=== PATIENT | female | born 1970 | race Caucasian/White ===

== ENCOUNTER 2023-07-04 06:58 | Day surgery (SDC) | payer BC, OTHER ==
[2023-07-04] VITALS (8 sets, daily range): BP systolic 120–132; BP diastolic 35–74; PULSE 72–78; RESP 12–14; TEMP 97.9; O2SAT 95–100
[~2023-07-04] VITALS: Ht 165.1 cm; Wt 71.2 kg
[2023-07-04] MEDS ORDERED: SPIR25TA5 PO (07:19)
[2023-07-04] MEDS ORDERED: PANT40TA54 PO (07:19)
[2023-07-04] MEDS ORDERED: ONDA-104 SL (07:19)
[2023-07-04] MEDS ORDERED: NALT50TA PO (07:19)
[2023-07-04] MEDS ORDERED: SERT-433 PO (07:19)
[2023-07-04] MEDS ORDERED: normal saline 1000ml 1,000 ML IV PRN (07:20)
[2023-07-04] MEDS ORDERED: albumin 25% 100mL bottle x 1 IV PRN (07:20)
== END 2023-07-04 10:45 | disposition home or self-care (01) ==
LOC: SSTAY O 06:58
PROVIDERS: ATTEND Radiology Diagnostic Radiology
DX: K70.31 Alcoholic cirrhosis of liver with ascites (principal); K76.6 Portal hypertension; D69.6 Thrombocytopenia, unspecified; D68.9 Coagulation defect, unspecified; Z88.8 Allergy status to other drugs, medicaments and biological substances; Z79.899 Other long term (current) drug therapy; F10.91 Alcohol use, unspecified, in remission
CPT/HCPCS: 49083; C1729; J3490; P9047; A6258; A6449

== ENCOUNTER 2023-07-28 08:34 | Day surgery (SDC) | payer OTHER ==
[2023-07-28] VITALS (8 sets, daily range): BP systolic 115–140; BP diastolic 57–72; PULSE 89–95; RESP 16; TEMP 98.7; O2SAT 93–100
[~2023-07-28] VITALS: Ht 165.1 cm; Wt 64.1 kg
[~2023-07-28 08:34] MED LIST: CHOL100046 PO; MULT-269 PO; NALT50TA PO; ONDA-104 SL; PANT40TA54 PO; PYRI-3 PO; SERT-433 PO; SPIR25TA5 PO
[2023-07-28] MEDS ORDERED: albumin 25% 100mL bottle x 1 IV PRN (09:05)
[2023-07-28] MEDS ORDERED: normal saline 1000ml 1,000 ML IV PRN (09:05)
== END 2023-07-28 11:20 | disposition home or self-care (01) ==
LOC: SSTAY O 08:34
PROVIDERS: ATTEND Radiology Vascular & Interventional Radiology
DX: R18.8 Other ascites (principal); R14.0 Abdominal distension (gaseous); Z79.899 Other long term (current) drug therapy; Z88.6 Allergy status to analgesic agent
CPT/HCPCS: 49083; C1729; J3490; P9047; A6258

== ENCOUNTER 2023-08-11 06:47 | Day surgery (SDC) | payer OTHER ==
[2023-08-11] VITALS (10 sets, daily range): BP systolic 106–145; BP diastolic 68–83; PULSE 90–99; RESP 14–16; TEMP 97.9; O2SAT 96–99
[~2023-08-11] VITALS: Ht 165.1 cm; Wt 67.8 kg
[2023-08-11] MEDS ORDERED: albumin 25% 100mL bottle x 1 IV PRN (07:40)
== END 2023-08-11 10:30 | disposition home or self-care (01) ==
LOC: SSTAY O 06:47
PROVIDERS: ATTEND Radiology Vascular & Interventional Radiology
DX: K70.31 Alcoholic cirrhosis of liver with ascites (principal); K76.6 Portal hypertension; Z79.899 Other long term (current) drug therapy; Z98.890 Other specified postprocedural states
CPT/HCPCS: 49083; C1729; P9047; 96360; A6258; A6449

== ENCOUNTER 2023-08-18 06:30 | Day surgery (SDC) | payer OTHER ==
[2023-08-18] VITALS (11 sets, daily range): BP systolic 110–144; BP diastolic 59–86; PULSE 91–99; RESP 12–16; TEMP 99.4; O2SAT 96–98
[~2023-08-18] VITALS: Ht 165.1 cm; Wt 63.5 kg
[2023-08-18] MEDS ORDERED: AMOXICILLIN (07:15)
[2023-08-18] MEDS: albumin 25% 100mL bottle x 1 IV PRN ×2 (08:31→09:16)
== END 2023-08-18 11:10 | disposition home or self-care (01) ==
LOC: SSTAY O 06:30
PROVIDERS: ATTEND Radiology Vascular & Interventional Radiology
DX: K70.31 Alcoholic cirrhosis of liver with ascites (principal); K76.6 Portal hypertension; D69.6 Thrombocytopenia, unspecified; D68.9 Coagulation defect, unspecified; Z98.890 Other specified postprocedural states; Z88.8 Allergy status to other drugs, medicaments and biological substances; Z79.899 Other long term (current) drug therapy
CPT/HCPCS: 49083; C1729; P9047; 96360; A6258

== ENCOUNTER 2023-08-25 06:38 | Day surgery (SDC) | payer OTHER ==
[2023-08-25] VITALS (8 sets, daily range): BP systolic 111–134; BP diastolic 45–76; PULSE 92–97; RESP 16; TEMP 98.3; O2SAT 94–96
[~2023-08-25] VITALS: Ht 165.1 cm; Wt 62.1 kg
[~2023-08-25 06:38] MED LIST changes: +AMOXICILLIN
[2023-08-25] MEDS ORDERED: albumin 25% 100mL bottle x 1 IV PRN (07:05)
[2023-08-25] MEDS ORDERED: SPIR50TA5 PO (07:34)
[2023-08-25] MEDS ORDERED: LIDO15SO3 PO (07:34)
[2023-08-25] MEDS ORDERED: AMOX600S4 PO (07:34)
== END 2023-08-25 09:46 | disposition home or self-care (01) ==
LOC: SSTAY O 06:38
PROVIDERS: ATTEND Radiology Vascular & Interventional Radiology
DX: K70.31 Alcoholic cirrhosis of liver with ascites (principal); K76.6 Portal hypertension; D69.6 Thrombocytopenia, unspecified; D68.9 Coagulation defect, unspecified; Z98.890 Other specified postprocedural states
CPT/HCPCS: 49083; C1729; P9047; 96360; A6258

== ENCOUNTER 2023-08-31 07:29 | Day surgery (SDC) | payer OTHER ==
[~2023-08-31] VITALS: Ht 165.1 cm; Wt 60.8 kg
[~2023-08-31 07:29] MED LIST changes: +AMOX600S4 PO; -AMOXICILLIN; +LIDO15SO3 PO; -NALT50TA PO; -SPIR25TA5 PO; +SPIR50TA5 PO
[2023-08-31] MEDS: albumin 25% 100mL bottle x 1 IV PRN ×2 (08:04→08:05)
[2023-08-31 08:29] VITALS: RESP 15; O2SAT 97
[2023-08-31 08:34] VITALS: BP 115/77; PULSE 94; RESP 15; O2SAT 93
[2023-08-31 08:50] VITALS: BP 134/68; PULSE 94; RESP 14; O2SAT 94
[2023-08-31 09:03] VITALS: BP 133/76; PULSE 94; RESP 15; O2SAT 95
[2023-08-31 09:48] VITALS: BP 115/61; PULSE 95; RESP 15; O2SAT 94
== END 2023-08-31 10:30 | disposition home or self-care (01) ==
LOC: SSTAY O 07:29
PROVIDERS: ATTEND Radiology Diagnostic Radiology
DX: K70.31 Alcoholic cirrhosis of liver with ascites (principal); K76.6 Portal hypertension; D69.6 Thrombocytopenia, unspecified; D68.9 Coagulation defect, unspecified; Z79.899 Other long term (current) drug therapy; Z98.890 Other specified postprocedural states
CPT/HCPCS: 49083; C1729; P9047; A6258

== ENCOUNTER 2023-09-06 07:30 | Day surgery (SDC) | payer OTHER ==
[2023-09-06] VITALS (10 sets, daily range): BP systolic 89–131; BP diastolic 44–73; PULSE 87–96; RESP 14–18; TEMP 98.3; O2SAT 91–99
[~2023-09-06] VITALS: Ht 165.1 cm; Wt 59.0 kg
[~2023-09-06 07:30] MED LIST changes: -AMOX600S4 PO; -LIDO15SO3 PO
[2023-09-06] MEDS ORDERED: albumin 25% 100mL bottle x 1 IV PRN (08:05)
[2023-09-06] MEDS ORDERED: HALLS - SOOTHE MENTHOL 1.8 MG cough drop LOZENGE MM PRN (09:35)
== END 2023-09-06 11:40 | disposition home or self-care (01) ==
LOC: SSTAY O 07:30
PROVIDERS: ATTEND Radiology Vascular & Interventional Radiology
DX: K70.31 Alcoholic cirrhosis of liver with ascites (principal); K76.6 Portal hypertension; D69.6 Thrombocytopenia, unspecified; D68.9 Coagulation defect, unspecified; Z79.899 Other long term (current) drug therapy; Z98.890 Other specified postprocedural states
CPT/HCPCS: 49083; C1729; P9047; A6258; A6449

== ENCOUNTER 2023-09-14 07:50 | Day surgery (SDC) | payer OTHER ==
[2023-09-14] VITALS (7 sets, daily range): BP systolic 110–130; BP diastolic 58–77; PULSE 80–94; RESP 15–17; TEMP 97.8; O2SAT 94–100
[~2023-09-14] VITALS: Ht 165.1 cm; Wt 61.8 kg
[~2023-09-14 07:50] MED LIST changes: -ONDA-104 SL
[2023-09-14] MEDS ORDERED: albumin 25% 100mL bottle x 1 IV PRN (08:15)
== END 2023-09-14 10:20 | disposition home or self-care (01) ==
LOC: SSTAY O 07:50
PROVIDERS: ATTEND Radiology Vascular & Interventional Radiology
DX: K70.31 Alcoholic cirrhosis of liver with ascites (principal); K76.6 Portal hypertension; K31.819 Angiodysplasia of stomach and duodenum without bleeding; D69.6 Thrombocytopenia, unspecified; D68.9 Coagulation defect, unspecified; Z98.890 Other specified postprocedural states; Z79.899 Other long term (current) drug therapy
CPT/HCPCS: 49083; C1729; P9047; A6258; A6449

== ENCOUNTER 2023-09-21 06:59 | Day surgery (SDC) | payer OTHER ==
[2023-09-21] VITALS (11 sets, daily range): BP systolic 98–165; BP diastolic 56–96; PULSE 89–105; RESP 14–16; TEMP 98.4; O2SAT 95–97
[~2023-09-21] VITALS: Ht 165.1 cm; Wt 66.5 kg
[2023-09-21] MEDS: albumin 25% 100mL bottle x 1 IV PRN ×3 (09:05→09:08)
== END 2023-09-21 11:45 | disposition home or self-care (01) ==
LOC: SSTAY O 06:59
PROVIDERS: ATTEND Radiology Vascular & Interventional Radiology
DX: K70.31 Alcoholic cirrhosis of liver with ascites (principal); K76.6 Portal hypertension; D69.6 Thrombocytopenia, unspecified; D68.9 Coagulation defect, unspecified; K31.819 Angiodysplasia of stomach and duodenum without bleeding; Z98.890 Other specified postprocedural states; Z79.899 Other long term (current) drug therapy
CPT/HCPCS: 49083; C1729; P9047; A6258; A6449

== ENCOUNTER 2023-09-28 07:06 | Day surgery (SDC) | payer OTHER ==
[~2023-09-28] VITALS: Ht 165.1 cm; Wt 63.5 kg
[2023-09-28] VITALS (13 sets, daily range): BP systolic 115–153; BP diastolic 57–97; PULSE 98–106; RESP 16; TEMP 98.3; O2SAT 95–98
[2023-09-28] MEDS ORDERED: normal saline 1000ml 1,000 ML IV PRN (07:35)
[2023-09-28] MEDS ORDERED: FOLI1TAB27 PO (07:56)
[2023-09-28] MEDS ORDERED: THIA100T66 PO (07:56)
[2023-09-28] MEDS ORDERED: SERT-433 PO (07:56)
[2023-09-28] MEDS ORDERED: TRAZ-256 PO (07:56)
[2023-09-28] MEDS: albumin 25% 100mL bottle x 1 IV PRN ×2 (09:44→10:11)
== END 2023-09-28 11:30 | disposition home or self-care (01) ==
LOC: SSTAY O 07:06
PROVIDERS: ATTEND Radiology Vascular & Interventional Radiology
DX: K70.31 Alcoholic cirrhosis of liver with ascites (principal); D69.6 Thrombocytopenia, unspecified; D68.9 Coagulation defect, unspecified; K76.6 Portal hypertension; Z98.890 Other specified postprocedural states; Z79.899 Other long term (current) drug therapy
CPT/HCPCS: 49083; C1729; P9047; A6258; A6449

== ENCOUNTER 2023-10-02 06:22 | Day surgery (SDC) | payer OTHER ==
[2023-10-02] VITALS (8 sets, daily range): BP systolic 112–147; BP diastolic 58–83; PULSE 73–109; RESP 12–16; TEMP 99.2; O2SAT 94–99
[~2023-10-02 06:22] MED LIST changes: +FOLI1TAB27 PO; -PANT40TA54 PO; +THIA100T66 PO; +TRAZ-256 PO
[2023-10-02] MEDS ORDERED: albumin 25% 100mL bottle x 1 IV PRN (09:05)
== END 2023-10-02 10:00 | disposition home or self-care (01) ==
LOC: SSTAY O 06:22
PROVIDERS: ATTEND Radiology Vascular & Interventional Radiology
DX: R18.8 Other ascites (principal); R14.0 Abdominal distension (gaseous); K76.6 Portal hypertension
CPT/HCPCS: 49083; C1729; J3490; P9047; 96360

== ENCOUNTER 2023-10-05 06:05 | Day surgery (SDC) | payer OTHER ==
[2023-10-05] VITALS (7 sets, daily range): BP systolic 119–134; BP diastolic 68–77; PULSE 88–95; RESP 16; TEMP 98.3; O2SAT 97–99
[~2023-10-05] VITALS: Ht 165.1 cm; Wt 62.3 kg
[~2023-10-05 06:05] MED LIST changes: +albumin 25% 100mL bottle x 1 IV PRN
[2023-10-05] MEDS ORDERED: albumin 25% 100mL bottle x 1 IV PRN (06:25)
== END 2023-10-05 10:07 | disposition home or self-care (01) ==
LOC: SSTAY O 06:05
PROVIDERS: ATTEND Radiology Vascular & Interventional Radiology
DX: K70.31 Alcoholic cirrhosis of liver with ascites (principal); K76.6 Portal hypertension; D69.6 Thrombocytopenia, unspecified; D68.9 Coagulation defect, unspecified; Z98.890 Other specified postprocedural states; Z79.899 Other long term (current) drug therapy
CPT/HCPCS: 49083; C1729; P9047; 96360; A6258; A6449

== ENCOUNTER 2023-10-10 05:56 | Day surgery (SDC) | payer OTHER ==
[~2023-10-10] VITALS: Ht 165.1 cm; Wt 64.2 kg
[2023-10-10] VITALS (7 sets, daily range): BP systolic 104–135; BP diastolic 60–85; PULSE 94–99; RESP 16; TEMP 97.9; O2SAT 95–98
[~2023-10-10 05:56] MED LIST changes: -albumin 25% 100mL bottle x 1 IV PRN
[2023-10-10] MEDS ORDERED: albumin 25% 100mL bottle x 1 IV PRN (06:15)
== END 2023-10-10 10:00 | disposition home or self-care (01) ==
LOC: SSTAY O 05:56
PROVIDERS: ATTEND Radiology Diagnostic Radiology
DX: K70.31 Alcoholic cirrhosis of liver with ascites (principal); K76.6 Portal hypertension; D69.6 Thrombocytopenia, unspecified; D68.9 Coagulation defect, unspecified; Z72.89 Other problems related to lifestyle; Z79.899 Other long term (current) drug therapy; Z87.19 Personal history of other diseases of the digestive system; Z98.890 Other specified postprocedural states
CPT/HCPCS: 49083; C1729; P9047; 96360; A6258

== ENCOUNTER 2023-10-13 08:11 | Day surgery (SDC) | payer OTHER ==
[~2023-10-13] VITALS: Ht 165.1 cm; Wt 64.2 kg
[2023-10-13] MEDS ORDERED: ACET-890 PO (08:24)
[2023-10-13 08:25] VITALS: BP 120/75; PULSE 95; RESP 16; TEMP 98.5; O2SAT 99
[2023-10-13] MEDS: albumin 25% 100mL bottle x 1 IV PRN ×2 (08:39→09:36)
[2023-10-13 09:45] VITALS: BP 114/77; PULSE 97; RESP 16; O2SAT 98
[2023-10-13 10:00] VITALS: BP 117/65; PULSE 92; RESP 15; O2SAT 97
[2023-10-13 10:15] VITALS: BP 119/64; PULSE 89; RESP 15; O2SAT 96
[2023-10-13 10:30] VITALS: BP 122/75; PULSE 95; RESP 17; O2SAT 98
[2023-10-13 10:45] VITALS: BP 132/70; PULSE 95; RESP 17; O2SAT 100
== END 2023-10-13 10:50 | disposition home or self-care (01) ==
LOC: SSTAY O 08:11
PROVIDERS: ATTEND Radiology Vascular & Interventional Radiology
DX: K70.31 Alcoholic cirrhosis of liver with ascites (principal); K76.6 Portal hypertension; D69.6 Thrombocytopenia, unspecified; D68.9 Coagulation defect, unspecified; Z98.890 Other specified postprocedural states; Z79.899 Other long term (current) drug therapy
CPT/HCPCS: 49083; C1729; P9047; A6258; A6449

== ENCOUNTER 2023-10-17 06:06 | Day surgery (SDC) | payer OTHER ==
[~2023-10-17] VITALS: Ht 165.1 cm; Wt 60.2 kg
[~2023-10-17 06:06] MED LIST changes: +ACET-890 PO
[2023-10-17 06:20] VITALS: BP 144/78; PULSE 90; RESP 18; TEMP 98.3; O2SAT 99
[2023-10-17] MEDS ORDERED: albumin 25% 100mL bottle x 1 IV PRN (06:25)
[2023-10-17] MEDS ORDERED: normal saline 1000ml 1,000 ML IV PRN (06:25)
[2023-10-17 06:41] VITALS: RESP 15; O2SAT 97
[2023-10-17] MEDS ORDERED: FLU VACC QS2023-24(6MOS UP)/PF 60 MCG/0.5 ML SYRINGE IM ONE (10:00)
== END 2023-10-17 09:30 | disposition home or self-care (01) ==
LOC: SSTAY O 06:06
PROVIDERS: ATTEND Radiology Vascular & Interventional Radiology
DX: K70.31 Alcoholic cirrhosis of liver with ascites (principal); Z53.8 Procedure and treatment not carried out for other reasons; K76.6 Portal hypertension; D69.6 Thrombocytopenia, unspecified; D68.9 Coagulation defect, unspecified; Z98.890 Other specified postprocedural states; Z72.89 Other problems related to lifestyle; Z88.8 Allergy status to other drugs, medicaments and biological substances; Z79.899 Other long term (current) drug therapy; Z23 Encounter for immunization
CPT/HCPCS: 76705; 90471; 90686; P9047

== ENCOUNTER 2023-10-20 06:35 | Day surgery (SDC) | payer OTHER ==
[2023-10-20] VITALS (9 sets, daily range): BP systolic 107–149; BP diastolic 61–74; PULSE 83–98; RESP 12–16; TEMP 98.1; O2SAT 94–100
[~2023-10-20] VITALS: Ht 165.1 cm; Wt 65.2 kg
[2023-10-20] MEDS: albumin 25% 100mL bottle x 1 IV PRN ×2 (07:34→09:13)
== END 2023-10-20 10:30 | disposition home or self-care (01) ==
LOC: SSTAY O 06:35
PROVIDERS: ATTEND Radiology Vascular & Interventional Radiology
DX: K70.31 Alcoholic cirrhosis of liver with ascites (principal); K76.6 Portal hypertension; D69.6 Thrombocytopenia, unspecified; D68.9 Coagulation defect, unspecified; Z98.890 Other specified postprocedural states; Z79.899 Other long term (current) drug therapy
CPT/HCPCS: 49083; C1729; P9047; 96360; A6258

== ENCOUNTER 2023-10-27 07:26 | Day surgery (SDC) | payer OTHER ==
[2023-10-27] VITALS (12 sets, daily range): BP systolic 80–142; BP diastolic 59–103; PULSE 88–95; RESP 16; TEMP 99.1; O2SAT 93–98
[~2023-10-27] VITALS: Ht 165.1 cm; Wt 66.0 kg
[2023-10-27] MEDS: albumin 25% 100mL bottle x 1 IV PRN ×2 (08:57→09:13)
== END 2023-10-27 10:55 | disposition home or self-care (01) ==
LOC: SSTAY O 07:26
PROVIDERS: ATTEND Radiology Diagnostic Radiology
DX: K70.31 Alcoholic cirrhosis of liver with ascites (principal); K76.6 Portal hypertension; D69.6 Thrombocytopenia, unspecified; D68.9 Coagulation defect, unspecified; Z98.890 Other specified postprocedural states; Z79.899 Other long term (current) drug therapy
CPT/HCPCS: 49083; C1729; P9047; 96360; A6258; A6449

== ENCOUNTER 2023-11-03 07:00 | Day surgery (SDC) | payer OTHER ==
[2023-11-03] VITALS (9 sets, daily range): BP systolic 106–145; BP diastolic 56–73; PULSE 67–102; RESP 12–16; TEMP 97.5; O2SAT 94–100
[~2023-11-03] VITALS: Ht 165.1 cm; Wt 66.6 kg
[2023-11-03] MEDS ORDERED: LACT10SO3 PO (07:24)
[2023-11-03] MEDS ORDERED: normal saline 1000ml 1,000 ML IV PRN (07:40)
[2023-11-03] MEDS: albumin 25% 100mL bottle x 1 IV PRN ×2 (08:19→09:06)
[2023-11-03] MEDS ORDERED: FURO20TA4 PO (08:46)
[2023-11-03] MEDS ORDERED: POTA-366 PO (08:46)
== END 2023-11-03 10:22 | disposition home or self-care (01) ==
LOC: SSTAY O 07:00
PROVIDERS: ATTEND Radiology Vascular & Interventional Radiology
DX: K70.31 Alcoholic cirrhosis of liver with ascites (principal); K76.6 Portal hypertension; D69.6 Thrombocytopenia, unspecified; D68.9 Coagulation defect, unspecified; Z79.899 Other long term (current) drug therapy; Z98.890 Other specified postprocedural states
CPT/HCPCS: 49083; C1729; P9047; 96360; A6258

== ENCOUNTER 2023-11-10 07:24 | Day surgery (SDC) | payer OTHER ==
[2023-11-10] VITALS (11 sets, daily range): BP systolic 104–137; BP diastolic 55–78; PULSE 81–90; RESP 16; TEMP 98.4; O2SAT 93–98
[~2023-11-10] VITALS: Ht 165.1 cm; Wt 68.2 kg
[~2023-11-10 07:24] MED LIST changes: +FURO20TA4 PO; +LACT10SO3 PO; +POTA-366 PO
[2023-11-10] MEDS: albumin 25% 100mL bottle x 1 IV PRN ×2 (08:13→09:19)
== END 2023-11-10 12:00 | disposition home or self-care (01) ==
LOC: SSTAY O 07:24
PROVIDERS: ATTEND Radiology Vascular & Interventional Radiology
DX: K70.31 Alcoholic cirrhosis of liver with ascites (principal); K31.819 Angiodysplasia of stomach and duodenum without bleeding; K76.6 Portal hypertension; D69.6 Thrombocytopenia, unspecified; D68.9 Coagulation defect, unspecified; Z98.890 Other specified postprocedural states; Z79.899 Other long term (current) drug therapy
CPT/HCPCS: 49083; C1729; P9047; 96360; A6258

== ENCOUNTER 2023-11-17 07:29 | Day surgery (SDC) | payer OTHER ==
[~2023-11-17] VITALS: Ht 165.1 cm; Wt 66.9 kg
[2023-11-17] VITALS (10 sets, daily range): BP systolic 109–149; BP diastolic 64–98; PULSE 79–89; RESP 14–20; TEMP 98; O2SAT 96–98
[2023-11-17] MEDS: albumin 25% 100mL bottle x 1 IV PRN (08:10)
== END 2023-11-17 12:05 | disposition home or self-care (01) ==
LOC: SSTAY O 07:29
PROVIDERS: ATTEND Radiology Vascular & Interventional Radiology
DX: K70.31 Alcoholic cirrhosis of liver with ascites (principal); K76.6 Portal hypertension; D69.6 Thrombocytopenia, unspecified; D68.9 Coagulation defect, unspecified; Z88.8 Allergy status to other drugs, medicaments and biological substances; Z98.890 Other specified postprocedural states; Z79.899 Other long term (current) drug therapy
CPT/HCPCS: 49083; A6258; C1729; P9047; A6449

== ENCOUNTER 2023-11-20 02:52 | Inpatient (IN) | payer OTHER ==
[~2023-11-20] VITALS: Ht 165.1 cm; Wt 59.1 kg
[2023-11-20] MEDS: ondansetron/PF 4mg/2ml inj IV ONE (03:47)
[2023-11-20] MEDS: morphine 4 MG/ML inj SYRINge IV ONE (03:47)
[2023-11-20] MEDS: acetaminophen 1,000mg/100ml IV 100 ML IV ONE (03:52)
[2023-11-20 04:14] LABS: BASOPHILS % (AUTO) 0.3 % (0-1); EOSINOPHILS % (AUTO) 0.1 % (0-6); HEMATOCRIT 34.1 % (35.0-45.0); HEMOGLOBIN 11.6 g/dl (12.0-16.0); LYMPHOCYTES # (AUTO) 0.2 X10'3 (1.1-4.8); LYMPHOCYTES % (AUTO) 2.3 % (21-51); MEAN CORPUSCULAR HGB CONC 34.1 g/dL (33.0-36.5); MEAN CORPUSCULAR VOLUME 99.7 FL (78-98); MEAN PLATELET VOLUME 8.9 FL (7.4-10.4); MONOCYTES # (AUTO) 0.2 X10'3 (0-0.9); MONOCYTES % (AUTO) 1.6 % (2-12); NEUTROPHILS # (AUTO) 8.8 X10'3 (1.8-7.7); NEUTROPHILS % (AUTO) 95.7 % (42-75); PLATELET COUNT 60 X10'3 (140-440); RED BLOOD COUNT 3.42 X10'6 (4.20-5.60); RED CELL DISTRIBUTION WIDTH 15.7 % (11.5-14.5); WHITE BLOOD COUNT 9.2 X10'3 (4.5-11.0)
[2023-11-20 04:18] LABS: ALBUMIN 3.8 G/DL (3.4-5.0); ANION GAP 14 (8-16); BLOOD UREA NITROGEN 11 MG/DL (7-18); BUN/CREATININE RATIO 12.5 (10.0-20.0); CALCIUM 9.4 MG/DL (8.5-10.1); CHLORIDE 95 MMOL/L (99-107); CREATININE 0.88 MG/DL (0.40-0.90); GLUCOSE 118 MG/DL (70-104); MAGNESIUM 1.6 MG/DL (1.5-2.4); POTASSIUM 3.5 MMOL/L (3.5-5.1); SODIUM 128 MMOL/L (135-145); TOTAL CARBON DIOXIDE 19.5 MMOL/L (24-32); eCRCL 67 ML/MIN; eGFR 67 ML/MIN
[2023-11-20] MEDS ORDERED: iohexol 300mg/ml 100ml inj. ONE (04:24)
[2023-11-20] MEDS: normal saline 1000ML IV soln IVB ONE (04:51)
[2023-11-20] MEDS: piperacillin/tazo 3.375gm/50ml 50 ML IV ONE (04:54)
[2023-11-20] MEDS: vancomycin/NS 1 GM ADD-VANTAGE 250 ML IV ONE (05:46)
[2023-11-20 05:49] LABS: BILIRUBIN,URINE NEGATIVE (Neg); CLARITY,URINE CLEAR (Clear); COLOR,URINE YELLOW (Yellow); GLUCOSE, URINE NEGATIVE (Neg); KETONES,URINE NEGATIVE (Neg); LEUKOCYTE ESTERASE ,URINE NEGATIVE (Neg); NITRITES, URINE NEGATIVE (Neg); OCCULT BLOOD,URINE NEGATIVE (Neg); PH,URINE 6.5 (4.8-8.0); PROTEIN,URINE NEGATIVE (Neg); UROBILINOGEN,URINE 0.2 E.U/dL (0.2-1.0)
[2023-11-20 05:53] LABS: UA COLLECTION TYPE OTHER
[2023-11-20] MEDS: LIDOCAINE 1%/EPI 1:100,000 inj. 10 ML multi-dose vial IJ ONE (06:01)
[2023-11-20] MEDS ORDERED: morphine 2 MG/ML inj. syringe IV PRN (08:40)
[2023-11-20] MEDS ORDERED: mag hydrox/Alum hydrox/simeth 30ml oral suspension PO PRN (08:40)
[2023-11-20] MEDS ORDERED: magnesium hydroxide 30ml (MOM) UD suspension PO PRN (08:40)
[2023-11-20] MEDS ORDERED: potassium Cl 20 mEq SR tablet PO PRN (08:40)
[2023-11-20] MEDS ORDERED: potassium Cl 40MEQ/1/2NS 520ml 520 ML IV PRN (08:40)
[2023-11-20] MEDS ORDERED: magnesium Cl slow-release 64mg tablet PO PRN (08:40)
[2023-11-20] MEDS ORDERED: magnesium 4gm in 100ml NS 100 ML IV PRN (08:40)
[2023-11-20] MEDS ORDERED: magnesium 2GM in 50ml NS 50 ML IV PRN (08:40)
[2023-11-20] MEDS ORDERED: acetaminophen 325mg tablet PO PRN (08:40)
[2023-11-20 08:41] LABS: PLATELET ESTIMATE DECREASED; TOTAL CELLS COUNTED 100
[2023-11-20 08:42] LABS: BURR CELLS FEW; ELLIPTOCYTES FEW; POLYCHROMASIA FEW
[2023-11-20 08:46] LABS: BF RBC COUNT 2650 /CU MM; BF WBC COUNT 9625 /CU MM (0-1000); BFAPPEAR CLOUDY; BFCOLOR YELLOW; BFSOURCE OTHER; BFVOLUME 7 ML; LYMPHOCYTES,BODY FLUID 1 %; MONOCYTES,BODY FLUID 4 %; NEUTROPHILS,BODY FLUID 95 %
[2023-11-20] MEDS: CefTRIAXone 2gm/D5W 50ml BAG 50 ML IV SCH (09:48)
[2023-11-20 14:52] LABS: APTT 46 SECONDS (22-32); INR 2.2 INR; PROTHROMBIN TIME 22.5 SECONDS (9.0-12.0)
[2023-11-20 15:11] LABS: ALANINE AMINOTRANSFERASE 15 U/L (12-78); ALBUMIN 2.9 G/DL (3.4-5.0); ALKALINE PHOSPHATASE 60 IU/L (46-116); ANION GAP 11 (8-16); ASPARTATE AMINO TRANSFERASE 24 U/L (10-37); BILIRUBIN,TOTAL 4.5 MG/DL (0.1-1.0); BLOOD UREA NITROGEN 9 MG/DL (7-18); BUN/CREATININE RATIO 11.4 (10.0-20.0); CALCIUM 8.6 MG/DL (8.5-10.1); CHLORIDE 102 MMOL/L (99-107); CREATININE 0.79 MG/DL (0.40-0.90); GLUCOSE 114 MG/DL (70-104); HDL CHOLESTEROL 24 MG/DL (35-60); LDL CHOLESTEROL 26 MG/DL (50-100); POTASSIUM 3.7 MMOL/L (3.5-5.1); SODIUM 132 MMOL/L (135-145); TOTAL CARBON DIOXIDE 19.5 MMOL/L (24-32); eCRCL 74 ML/MIN; eGFR 76 ML/MIN
[2023-11-20 15:12] LABS: ALBUMIN/GLOBULIN RATIO 0.9 (1.1-1.5); CHOL/HDL RATIO 3.2 (0.00-4.99); CHOLESTEROL 77 MG/DL (0-200); TOTAL PROTEIN 6.3 G/DL (6.4-8.2); TRIGLYCERIDES 36 MG/DL (20-135)
[2023-11-20 15:27] LABS: HEMOGLOBIN A1C < 3.8 % (4.5-6.2)
[2023-11-20 20:00] VITALS: BP 109/57; PULSE 100; RESP 20; TEMP 98.5; O2SAT 97
[2023-11-20] MEDS: K and/or MAG REPLACEMENT MC SCH (20:00)
[2023-11-20] MEDS: docusate sod 100mg capsule PO SCH (20:00)
[2023-11-20] MEDS: furosemide 20MG tablet PO SCH (21:20)
[2023-11-20] MEDS: LACTULOSE PO SCH (21:21)
[2023-11-20] MEDS: sertraline 50mg tablet PO ONE (21:23)
[2023-11-20] MEDS: spironolactone 50 MG tablet PO SCH (21:24)
[2023-11-20 22:00] VITALS: BP 136/73; PULSE 105; RESP 21; TEMP 97.8; O2SAT 95
[2023-11-20] MEDS: normal saline 1000ml 1,000 ML IV SCH (23:40)
[2023-11-20] MEDS: octreotide 100mcg/1 ml ampule SQ SCH (23:42)
[2023-11-21] MEDS: traZODone 50mg tablet PO SCH
[2023-11-21 06:00] VITALS: BP 132/52; PULSE 99; RESP 16; TEMP 98.7; O2SAT 92
[2023-11-21 06:46] LABS: BASOPHILS % (AUTO) 0.2 % (0-1); EOSINOPHILS # (AUTO) 0.1 X10'3 (0-0.9); EOSINOPHILS % (AUTO) 1.3 % (0-6); HEMATOCRIT 27.6 % (35.0-45.0); HEMOGLOBIN 9.5 g/dl (12.0-16.0); LYMPHOCYTES # (AUTO) 0.4 X10'3 (1.1-4.8); LYMPHOCYTES % (AUTO) 7.3 % (21-51); MEAN CORPUSCULAR HEMOGLOBIN 34.2 PG (27.0-31.0); MEAN CORPUSCULAR HGB CONC 34.3 g/dL (33.0-36.5); MEAN CORPUSCULAR VOLUME 99.5 FL (78-98); MEAN PLATELET VOLUME 9.2 FL (7.4-10.4); MONOCYTES # (AUTO) 0.6 X10'3 (0-0.9); MONOCYTES % (AUTO) 10.4 % (2-12); NEUTROPHILS # (AUTO) 4.8 X10'3 (1.8-7.7); NEUTROPHILS % (AUTO) 80.8 % (42-75); PLATELET COUNT 64 X10'3 (140-440); RED BLOOD COUNT 2.78 X10'6 (4.20-5.60); RED CELL DISTRIBUTION WIDTH 16.1 % (11.5-14.5)
[2023-11-21 06:55] LABS: ALANINE AMINOTRANSFERASE 19 U/L (12-78); ALBUMIN 2.9 G/DL (3.4-5.0); ALBUMIN/GLOBULIN RATIO 0.8 (1.1-1.5); ALKALINE PHOSPHATASE 63 IU/L (46-116); ANION GAP 9 (8-16); ASPARTATE AMINO TRANSFERASE 25 U/L (10-37); BILIRUBIN,TOTAL 3.7 MG/DL (0.1-1.0); BLOOD UREA NITROGEN 14 MG/DL (7-18); CALCIUM 9.3 MG/DL (8.5-10.1); CHLORIDE 102 MMOL/L (99-107); GLUCOSE 129 MG/DL (70-104); LACTATE DEHYDROGENASE 144 U/L (81-234); POTASSIUM 3.4 MMOL/L (3.5-5.1); SODIUM 134 MMOL/L (135-145); THYROID STIMULATING HORMONE 0.48 ulU/ml (0.34-4.50); TOTAL CARBON DIOXIDE 23.1 MMOL/L (24-32); TOTAL PROTEIN 6.4 G/DL (6.4-8.2); eCRCL 84 ML/MIN; eGFR 88 ML/MIN
[2023-11-21 08:00] VITALS: RESP 16
[2023-11-21] MEDS: folic acid 1mg tablet PO SCH (08:37)
[2023-11-21] MEDS: pyridoxine 50mg tablet PO SCH (08:37)
[2023-11-21] MEDS: thiamine 100mg tablet PO SCH (08:37)
[2023-11-21] MEDS: potassium Cl 20 mEq SR tablet PO PRN (08:44)
[2023-11-21 10:00] VITALS: BP 122/66; PULSE 98; RESP 16; TEMP 100.7; O2SAT 98
[2023-11-21] MEDS: MEROPENEM 1GM/NS 100ML IVPB 100 ML IV SCH (16:46)
[2023-11-21] MEDS: albumin (human) 25% 100 ML IV solution IV ONE (17:30)
[2023-11-21 18:00] VITALS: BP 124/63; PULSE 94; RESP 16; TEMP 98.8; O2SAT 97
[2023-11-21] MEDS: sertraline 50mg tablet PO SCH (21:02)
[2023-11-21] MEDS: morphine 2 MG/ML inj. syringe IV PRN (21:21)
[2023-11-21 22:00] VITALS: BP 129/68; PULSE 91; RESP 16; TEMP 99.1; O2SAT 95
[2023-11-21] MEDS: spironolactone 25 MG tablet PO SCH (22:33)
[2023-11-22 06:15] LABS: BASOPHILS % (AUTO) 0.6 % (0-1); EOSINOPHILS # (AUTO) 0.1 X10'3 (0-0.9); EOSINOPHILS % (AUTO) 1.2 % (0-6); HEMATOCRIT 26.9 % (35.0-45.0); HEMOGLOBIN 9.1 g/dl (12.0-16.0); LYMPHOCYTES # (AUTO) 0.5 X10'3 (1.1-4.8); LYMPHOCYTES % (AUTO) 7.7 % (21-51); MEAN CORPUSCULAR HEMOGLOBIN 33.4 PG (27.0-31.0); MEAN CORPUSCULAR HGB CONC 33.9 g/dL (33.0-36.5); MEAN CORPUSCULAR VOLUME 98.5 FL (78-98); MEAN PLATELET VOLUME 8.7 FL (7.4-10.4); MONOCYTES # (AUTO) 1.1 X10'3 (0-0.9); MONOCYTES % (AUTO) 17.2 % (2-12); NEUTROPHILS # (AUTO) 4.6 X10'3 (1.8-7.7); NEUTROPHILS % (AUTO) 73.3 % (42-75); PLATELET COUNT 70 X10'3 (140-440); RED BLOOD COUNT 2.73 X10'6 (4.20-5.60); RED CELL DISTRIBUTION WIDTH 16.3 % (11.5-14.5); WHITE BLOOD COUNT 6.2 X10'3 (4.5-11.0)
[2023-11-22 06:19] LABS: ALANINE AMINOTRANSFERASE 16 U/L (12-78); ALBUMIN 2.9 G/DL (3.4-5.0); ALBUMIN/GLOBULIN RATIO 0.9 (1.1-1.5); ALKALINE PHOSPHATASE 76 IU/L (46-116); ANION GAP 9 (8-16); ASPARTATE AMINO TRANSFERASE 25 U/L (10-37); BILIRUBIN,TOTAL 3.2 MG/DL (0.1-1.0); BLOOD UREA NITROGEN 9 MG/DL (7-18); BUN/CREATININE RATIO 14.3 (10.0-20.0); CALCIUM 8.7 MG/DL (8.5-10.1); CHLORIDE 103 MMOL/L (99-107); CREATININE 0.63 MG/DL (0.40-0.90); GLUCOSE 127 MG/DL (70-104); POTASSIUM 3.5 MMOL/L (3.5-5.1); SODIUM 134 MMOL/L (135-145); TOTAL CARBON DIOXIDE 21.9 MMOL/L (24-32); eCRCL 93 ML/MIN; eGFR > 90 ML/MIN
[2023-11-22 07:00] VITALS: BP 126/69; PULSE 88; RESP 18; TEMP 99.4; O2SAT 99
[2023-11-22 08:00] VITALS: BP_SYST 114; BP_SYST 119; BP_SYST 139; BP_DIAS 65; BP_DIAS 69; BP_DIAS 70; PULSE 100; PULSE 107; PULSE 115
[2023-11-22 08:02] LABS: TOTAL CELLS COUNTED 100
[2023-11-22 08:03] LABS: ANISOCYTOSIS 1+; PLATELET ESTIMATE DECREASED
[2023-11-22 09:12] LABS: ALBUMIN,BODY FLUID 0.8 G/DL
[2023-11-22 11:00] VITALS: BP 129/70; PULSE 96; RESP 18; TEMP 99; O2SAT 95
[2023-11-22] MEDS ORDERED: LACTULOSE PO SCH (14:11)
[2023-11-22] MEDS: albumin (human) 25% 100 ML IV solution IV ONE (15:17)
[2023-11-22 18:00] VITALS: BP 139/71; PULSE 100; RESP 18; TEMP 97.7; O2SAT 94
[2023-11-22] MEDS: lactulose 20gm/30ml cup PO SCH (19:25)
[2023-11-22 22:00] VITALS: BP 143/74; PULSE 97; RESP 20; TEMP 98.4; O2SAT 94
[2023-11-23] VITALS (7 sets, daily range): BP systolic 136–160; BP diastolic 69–102; PULSE 87–100; RESP 16–20; TEMP 98.3–98.7; O2SAT 95–98
[2023-11-23] MEDS: metroNIDAZOLE-Flagyl 500mg/NS 100 ML IV SCH (05:39)
[2023-11-23 06:17] LABS: BASOPHILS # (AUTO) 0.1 X10'3 (0-0.2); BASOPHILS % (AUTO) 0.4 % (0-1); EOSINOPHILS % (AUTO) 0.1 % (0-6); HEMATOCRIT 34.9 % (35.0-45.0); HEMOGLOBIN 11.7 g/dl (12.0-16.0); LYMPHOCYTES # (AUTO) 0.5 X10'3 (1.1-4.8); LYMPHOCYTES % (AUTO) 3.7 % (21-51); MEAN CORPUSCULAR HGB CONC 33.5 g/dL (33.0-36.5); MEAN CORPUSCULAR VOLUME 98.7 FL (78-98); MEAN PLATELET VOLUME 8.6 FL (7.4-10.4); MONOCYTES # (AUTO) 2.3 X10'3 (0-0.9); MONOCYTES % (AUTO) 15.6 % (2-12); NEUTROPHILS # (AUTO) 11.7 X10'3 (1.8-7.7); NEUTROPHILS % (AUTO) 80.2 % (42-75); PLATELET COUNT 88 X10'3 (140-440); RED BLOOD COUNT 3.53 X10'6 (4.20-5.60); WHITE BLOOD COUNT 14.6 X10'3 (4.5-11.0)
[2023-11-23 06:33] LABS: ALANINE AMINOTRANSFERASE 18 U/L (12-78); ALBUMIN 3.3 G/DL (3.4-5.0); ALKALINE PHOSPHATASE 72 IU/L (46-116); ASPARTATE AMINO TRANSFERASE 29 U/L (10-37); BILIRUBIN,TOTAL 5.5 MG/DL (0.1-1.0); BLOOD UREA NITROGEN 15 MG/DL (7-18); BUN/CREATININE RATIO 20.3 (10.0-20.0); CALCIUM 9.1 MG/DL (8.5-10.1); CREATININE 0.74 MG/DL (0.40-0.90); GLUCOSE 142 MG/DL (70-104); SODIUM 132 MMOL/L (135-145); TOTAL CARBON DIOXIDE 21.6 MMOL/L (24-32); eCRCL 79 ML/MIN; eGFR 82 ML/MIN
[2023-11-23 07:00] LABS: ALBUMIN/GLOBULIN RATIO 0.9 (1.1-1.5); ANION GAP 12 (8-16); CHLORIDE 98 MMOL/L (99-107); TOTAL PROTEIN 6.8 G/DL (6.4-8.2)
[2023-11-23 07:23] LABS: HBSAG SCREEN Negative (Negative); HEP A AB, IGM Negative (Negative); HEPATITIS C VIRUS ANTIBODY Non Reactive (Non Reactive)
[2023-11-23] MEDS: CefTRIAXone 2gm/D5W 50ml BAG 50 ML IV SCH (08:54)
[2023-11-23 11:25] LABS: BURR CELLS 1+; ELLIPTOCYTES FEW; PLATELET ESTIMATE DECREASED; TOTAL CELLS COUNTED 100
[2023-11-23 11:26] LABS: SCHISTOCYTES FEW
[2023-11-23 12:52] LABS: BFAPPEAR HAZY
[2023-11-23 12:53] LABS: BF RBC COUNT 1175 /CU MM; BF WBC COUNT 2025 /CU MM (0-1000); BFCOLOR YELLOW; BFVOLUME 55 ML; LYMPHOCYTES,BODY FLUID 8 %; MONOCYTES,BODY FLUID 9 %; NEUTROPHILS,BODY FLUID 84 %
[2023-11-23 12:54] LABS: BFSOURCE ASCITES FLD
[2023-11-23 13:14] LABS: GLUCOSE,BODY FLUID 121 MG/DL
[2023-11-23 13:15] LABS: LDH,BODY FLUID 259 U/L; TOTAL PROTEIN,BODY FLUID < 2.0 G/DL
[2023-11-23] MEDS: albumin (human) 25% 100 ML IV solution IV ONE (15:02)
[2023-11-23] MEDS: ondansetron/PF 4mg/2ml inj IV PRN (18:22)
[2023-11-24 06:00] VITALS: BP 156/74; PULSE 89; RESP 18; TEMP 97; O2SAT 95
[2023-11-24 07:29] LABS: BASOPHILS % (AUTO) 0.2 % (0-1); EOSINOPHILS % (AUTO) 0.2 % (0-6); HEMATOCRIT 34.8 % (35.0-45.0); HEMOGLOBIN 11.6 g/dl (12.0-16.0); LYMPHOCYTES # (AUTO) 0.8 X10'3 (1.1-4.8); LYMPHOCYTES % (AUTO) 5.2 % (21-51); MEAN CORPUSCULAR HEMOGLOBIN 32.9 PG (27.0-31.0); MEAN CORPUSCULAR HGB CONC 33.5 g/dL (33.0-36.5); MEAN CORPUSCULAR VOLUME 98.3 FL (78-98); MEAN PLATELET VOLUME 8.8 FL (7.4-10.4); MONOCYTES # (AUTO) 1.6 X10'3 (0-0.9); MONOCYTES % (AUTO) 11.3 % (2-12); NEUTROPHILS # (AUTO) 12.1 X10'3 (1.8-7.7); NEUTROPHILS % (AUTO) 83.1 % (42-75); PLATELET COUNT 111 X10'3 (140-440); RED BLOOD COUNT 3.54 X10'6 (4.20-5.60); RED CELL DISTRIBUTION WIDTH 15.9 % (11.5-14.5); WHITE BLOOD COUNT 14.5 X10'3 (4.5-11.0)
[2023-11-24 07:44] LABS: ALANINE AMINOTRANSFERASE 22 U/L (12-78); ALBUMIN 3.5 G/DL (3.4-5.0); ALKALINE PHOSPHATASE 78 IU/L (46-116); ANION GAP 13 (8-16); ASPARTATE AMINO TRANSFERASE 25 U/L (10-37); BILIRUBIN,TOTAL 4.7 MG/DL (0.1-1.0); BLOOD UREA NITROGEN 37 MG/DL (7-18); BUN/CREATININE RATIO 45.1 (10.0-20.0); CALCIUM 9.6 MG/DL (8.5-10.1); CHLORIDE 93 MMOL/L (99-107); CREATININE 0.82 MG/DL (0.40-0.90); GLUCOSE 174 MG/DL (70-104); POTASSIUM 3.9 MMOL/L (3.5-5.1); SODIUM 128 MMOL/L (135-145); TOTAL CARBON DIOXIDE 22.5 MMOL/L (24-32); eCRCL 71 ML/MIN; eGFR 73 ML/MIN
[2023-11-24 09:45] LABS: LACTIC SEPSIS 3.3 MMOL/L (0.4-2.0)
[2023-11-24 10:00] VITALS: BP 144/79; PULSE 86; RESP 17; TEMP 97.8; O2SAT 98
[2023-11-24] MEDS: normal saline 1000ml 1,000 ML IV ONE ×3 (10:58→15:20)
[2023-11-24 18:00] VITALS: BP 129/74; PULSE 83; RESP 16; TEMP 99.4; O2SAT 98
[2023-11-24 20:00] VITALS: RESP 18; O2SAT 96
[2023-11-24] MEDS: normal saline 1000ml 1,000 ML IV SCH (21:02)
[2023-11-24] MEDS: spironolactone 50 MG tablet PO SCH (21:18)
[2023-11-24 22:00] VITALS: BP_SYST 138; BP_SYST 150; BP_DIAS 79; BP_DIAS 80; BP_DIAS 81; PULSE 88; PULSE 93; PULSE 98; RESP 16; TEMP 98.1; O2SAT 98
[2023-11-25] VITALS (8 sets, daily range): BP systolic 125–182; BP diastolic 73–88; PULSE 57–115; RESP 17–24; TEMP 97.1–98.5; O2SAT 95–99
[2023-11-25 06:29] LABS: BASOPHILS % (AUTO) 0.2 % (0-1); EOSINOPHILS % (AUTO) 0.2 % (0-6); HEMATOCRIT 33.5 % (35.0-45.0); HEMOGLOBIN 11.5 g/dl (12.0-16.0); LYMPHOCYTES # (AUTO) 0.9 X10'3 (1.1-4.8); LYMPHOCYTES % (AUTO) 4.6 % (21-51); MEAN CORPUSCULAR HEMOGLOBIN 33.2 PG (27.0-31.0); MEAN CORPUSCULAR HGB CONC 34.2 g/dL (33.0-36.5); MEAN CORPUSCULAR VOLUME 97.1 FL (78-98); MEAN PLATELET VOLUME 8.8 FL (7.4-10.4); MONOCYTES # (AUTO) 1.7 X10'3 (0-0.9); MONOCYTES % (AUTO) 8.7 % (2-12); NEUTROPHILS # (AUTO) 17.3 X10'3 (1.8-7.7); NEUTROPHILS % (AUTO) 86.3 % (42-75); PLATELET COUNT 134 X10'3 (140-440); RED BLOOD COUNT 3.45 X10'6 (4.20-5.60)
[2023-11-25 06:50] LABS: ALANINE AMINOTRANSFERASE 20 U/L (12-78); ALBUMIN 3.2 G/DL (3.4-5.0); ALKALINE PHOSPHATASE 82 IU/L (46-116); ANION GAP 11 (8-16); ASPARTATE AMINO TRANSFERASE 31 U/L (10-37); BILIRUBIN,TOTAL 4.6 MG/DL (0.1-1.0); BLOOD UREA NITROGEN 22 MG/DL (7-18); BUN/CREATININE RATIO 28.9 (10.0-20.0); CALCIUM 8.6 MG/DL (8.5-10.1); CHLORIDE 93 MMOL/L (99-107); CREATININE 0.76 MG/DL (0.40-0.90); GLUCOSE 151 MG/DL (70-104); SODIUM 127 MMOL/L (135-145); TOTAL CARBON DIOXIDE 23.3 MMOL/L (24-32); eCRCL 77 ML/MIN; eGFR 80 ML/MIN
[2023-11-25 06:53] LABS: ALBUMIN/GLOBULIN RATIO 0.9 (1.1-1.5); TOTAL PROTEIN 6.6 G/DL (6.4-8.2)
[2023-11-25] MEDS: MEROPENEM 1GM/NS 100ML IVPB 100 ML IV SCH (09:49)
[2023-11-25] MEDS: normal saline 1000ml 1,000 ML IV ONE (10:45)
[2023-11-25 11:12] LABS: INR 2.1 INR; PROTHROMBIN TIME 21.6 SECONDS (9.0-12.0)
[2023-11-25] MEDS: piperacillin/tazo 3.375gm/50ml 50 ML IV SCH (16:39)
== END 2023-11-26 01:30 | disposition critical access hospital (66) | DRG 871 ==
LOC: ER 03:58 → ED HOLD 08:46 → EDBEDREQ 16:48 → ORTHO 4S 19:20
PROVIDERS: ADMIT Internal Medicine; ATTEND Internal Medicine
PROC: 0W9G3ZZ Drainage of Peritoneal Cavity, Percutaneous Approach (ICD-10-PCS; principal; 2023-11-20)
PROC: 0W9G3ZZ Drainage of Peritoneal Cavity, Percutaneous Approach (ICD-10-PCS; 2023-11-23)
DX: A41.9 Sepsis, unspecified organism (principal); K65.2 Spontaneous bacterial peritonitis; E87.1 Hypo-osmolality and hyponatremia; E87.20 Acidosis, unspecified; E72.20 Disorder of urea cycle metabolism, unspecified; K76.6 Portal hypertension; K81.0 Acute cholecystitis; R16.0 Hepatomegaly, not elsewhere classified; I86.4 Gastric varices; K82.8 Other specified diseases of gallbladder; K42.9 Umbilical hernia without obstruction or gangrene; Z20.822 Contact with and (suspected) exposure to COVID-19; B96.20 Unspecified Escherichia coli [E. coli] as the cause of diseases classified elsewhere; R65.20 Severe sepsis without septic shock; F17.210 Nicotine dependence, cigarettes, uncomplicated; K72.90 Hepatic failure, unspecified without coma; D64.9 Anemia, unspecified; K70.31 Alcoholic cirrhosis of liver with ascites; Z88.6 Allergy status to analgesic agent; Z79.899 Other long term (current) drug therapy
CPT/HCPCS: 36415; 49083; 71045; 74177; 80048; 80053; 80061; 81003; 82042; 82103; 82140; 82247; 82945; 83036; 83605; 83615; 83735; 84145; 84157; 84439; 84443; 85007; 85025; 85610; 85730; 86709; 86803; 87040; 87070; 87075; 87077; 87081; 87186; 87340; 87502; 87503; 87522; 87811; 89051; 93005; 94799; 99285; A6213; G0378; J0131; J0696; J2185; J2270; J2354; J2405; J2543; J3370; J3490; J7030; J7040; P9047; Q9967

== ENCOUNTER 2024-02-28 09:55 | Inpatient (IN) | payer OTHER ==
[~2024-02-28] VITALS: Ht 165.1 cm; Wt 63.5 kg
[2024-02-28 15:55] LABS: BASOPHILS % (AUTO) 0.5 % (0-1); EOSINOPHILS # (AUTO) 0.1 X10'3 (0-0.9); EOSINOPHILS % (AUTO) 2.4 % (0-6); HEMATOCRIT 30.3 % (35.0-45.0); HEMOGLOBIN 10.2 g/dl (12.0-16.0); LYMPHOCYTES # (AUTO) 1.1 X10'3 (1.1-4.8); LYMPHOCYTES % (AUTO) 23.7 % (21-51); MEAN CORPUSCULAR HEMOGLOBIN 32.3 PG (27.0-31.0); MEAN CORPUSCULAR HGB CONC 33.5 g/dL (33.0-36.5); MEAN CORPUSCULAR VOLUME 96.3 FL (78-98); MONOCYTES # (AUTO) 0.5 X10'3 (0-0.9); MONOCYTES % (AUTO) 11.4 % (2-12); NEUTROPHILS # (AUTO) 2.9 X10'3 (1.8-7.7); PLATELET COUNT 83 X10'3 (140-440); RED BLOOD COUNT 3.14 X10'6 (4.20-5.60); RED CELL DISTRIBUTION WIDTH 16.1 % (11.5-14.5); WHITE BLOOD COUNT 4.6 X10'3 (4.5-11.0)
[2024-02-28] MEDS ORDERED: iohexol 300mg/ml 100ml inj. ONE (15:57)
[2024-02-28 16:30] LABS: ALBUMIN 2.5 G/DL (3.4-5.0); ANION GAP 7 (8-16); BLOOD UREA NITROGEN 10 MG/DL (7-18); BUN/CREATININE RATIO 18.9 (10.0-20.0); CALCIUM 8.6 MG/DL (8.5-10.1); CHLORIDE 106 MMOL/L (99-107); CREATININE 0.53 MG/DL (0.40-0.90); GLUCOSE 109 MG/DL (70-104); LIPASE 42 U/L (16-77); POTASSIUM 3.6 MMOL/L (3.5-5.1); SODIUM 137 MMOL/L (135-145); TOTAL CARBON DIOXIDE 23.8 MMOL/L (24-32); eCRCL 110 ML/MIN; eGFR > 90 ML/MIN
[2024-02-28] MEDS: aspirin 325mg tablet PO ONE (17:28)
[2024-02-28 19:02] LABS: BILIRUBIN,URINE NEGATIVE (Neg); CLARITY,URINE SLIGHTLY CLOUDY (Clear); COLOR,URINE YELLOW (Yellow); GLUCOSE, URINE NEGATIVE (Neg); KETONES,URINE NEGATIVE (Neg); LEUKOCYTE ESTERASE ,URINE NEGATIVE (Neg); NITRITES, URINE NEGATIVE (Neg); OCCULT BLOOD,URINE NEGATIVE (Neg); PH,URINE 5.5 (4.8-8.0); PROTEIN,URINE NEGATIVE (Neg)
[2024-02-28 19:12] LABS: UA COLLECTION TYPE CLN CATCH MIDSTREAM
[2024-02-28 19:14] LABS: SQUAMOUS EPITHELIAL CELL,UR MODERATE /LPF (FEW)
[2024-02-28 19:18] LABS: BACTERIA,URINE FEW /HPF (Neg); RBC,URINE 0-2 /HPF (0-2)
[2024-02-28 19:19] LABS: CAL OXALATE CRYSTALS 2+ /HPF (NEGATIVE)
[2024-02-28] MEDS ORDERED: morphine 2 MG/ML inj. syringe IV PRN (19:45)
[2024-02-28] MEDS ORDERED: magnesium 4gm in 100ml NS 100 ML IV PRN (19:45)
[2024-02-28] MEDS ORDERED: potassium Cl 20 mEq SR tablet PO PRN ×2 (19:45)
[2024-02-28] MEDS ORDERED: potassium Cl 40MEQ/1/2NS 520ml 520 ML IV PRN (19:45)
[2024-02-28] MEDS ORDERED: magnesium 2GM in 50ml NS 50 ML IV PRN (19:45)
[2024-02-28] MEDS ORDERED: ondansetron/PF 4mg/2ml inj IV PRN (19:45)
[2024-02-28] MEDS ORDERED: acetaminophen 325mg tablet PO PRN (19:45)
[2024-02-28] MEDS ORDERED: magnesium Cl slow-release 64mg tablet PO PRN (19:45)
[2024-02-28] MEDS ORDERED: HYDROcodone/acetaminophen 5mg/325mg tablet PO PRN (19:45)
[2024-02-28] MEDS: K and/or MAG REPLACEMENT MC SCH (20:00)
[2024-02-28 22:00] VITALS: BP 126/54; PULSE 89; RESP 16; RESP 20; TEMP 98.1; O2SAT 96; O2SAT 97
[2024-02-29 06:00] VITALS: BP 122/69; PULSE 71; RESP 20; TEMP 98.2; O2SAT 98
[2024-02-29 06:19] LABS: ALBUMIN 2.5 G/DL (3.4-5.0); ANION GAP 8 (8-16); BLOOD UREA NITROGEN 6 MG/DL (7-18); BUN/CREATININE RATIO 13.3 (10.0-20.0); CALCIUM 8.8 MG/DL (8.5-10.1); CHLORIDE 108 MMOL/L (99-107); CREATININE 0.45 MG/DL (0.40-0.90); GLUCOSE 84 MG/DL (70-104); MAGNESIUM 1.6 MG/DL (1.5-2.4); POTASSIUM 3.7 MMOL/L (3.5-5.1); SODIUM 139 MMOL/L (135-145); TOTAL CARBON DIOXIDE 23.2 MMOL/L (24-32); eCRCL 130 ML/MIN; eGFR > 90 ML/MIN
[2024-02-29 06:36] LABS: BASOPHILS % (AUTO) 0.5 % (0-1); EOSINOPHILS # (AUTO) 0.1 X10'3 (0-0.9); EOSINOPHILS % (AUTO) 2.3 % (0-6); HEMATOCRIT 29.9 % (35.0-45.0); HEMOGLOBIN 9.9 g/dl (12.0-16.0); LYMPHOCYTES # (AUTO) 1.1 X10'3 (1.1-4.8); LYMPHOCYTES % (AUTO) 22.3 % (21-51); MEAN CORPUSCULAR HGB CONC 33.3 g/dL (33.0-36.5); MEAN PLATELET VOLUME 7.9 FL (7.4-10.4); MONOCYTES # (AUTO) 0.5 X10'3 (0-0.9); MONOCYTES % (AUTO) 9.8 % (2-12); NEUTROPHILS # (AUTO) 3.1 X10'3 (1.8-7.7); NEUTROPHILS % (AUTO) 65.1 % (42-75); PLATELET COUNT 85 X10'3 (140-440); RED BLOOD COUNT 3.11 X10'6 (4.20-5.60); RED CELL DISTRIBUTION WIDTH 15.7 % (11.5-14.5); WHITE BLOOD COUNT 4.8 X10'3 (4.5-11.0)
[2024-02-29] MEDS: folic acid 1mg tablet PO SCH (08:33)
[2024-02-29] MEDS: furosemide 40mg tablet PO SCH (08:33)
[2024-02-29] MEDS: thiamine 100mg tablet PO SCH (08:33)
[2024-02-29] MEDS: lactulose 20gm/30ml cup PO SCH (08:33)
[2024-02-29] MEDS: spironolactone 50 MG tablet PO SCH (09:48)
[2024-02-29 10:00] VITALS: BP 103/67; PULSE 87; RESP 18; TEMP 97.8; O2SAT 98
[2024-02-29 11:54] LABS: APTT 32 SECONDS (22-32); INR 1.4 INR; PROTHROMBIN TIME 14.8 SECONDS (9.0-12.0)
[2024-02-29 12:17] LABS: ALANINE AMINOTRANSFERASE 62 U/L (12-78); ALBUMIN 2.6 G/DL (3.4-5.0); ALBUMIN/GLOBULIN RATIO 0.6 (1.1-1.5); ALKALINE PHOSPHATASE 180 IU/L (46-116); ANION GAP 10 (8-16); ASPARTATE AMINO TRANSFERASE 171 U/L (10-37); BILIRUBIN,TOTAL 2.3 MG/DL (0.1-1.0); BLOOD UREA NITROGEN 6 MG/DL (7-18); BUN/CREATININE RATIO 10.5 (10.0-20.0); CALCIUM 9.1 MG/DL (8.5-10.1); CHLORIDE 104 MMOL/L (99-107); CREATININE 0.57 MG/DL (0.40-0.90); GLUCOSE 111 MG/DL (70-104); POTASSIUM 3.5 MMOL/L (3.5-5.1); SODIUM 135 MMOL/L (135-145); TOTAL CARBON DIOXIDE 20.9 MMOL/L (24-32); TOTAL PROTEIN 7.2 G/DL (6.4-8.2); eCRCL 103 ML/MIN; eGFR > 90 ML/MIN
[2024-02-29] MEDS ORDERED: FURO40TA4 PO (13:01)
== END 2024-02-29 13:25 | disposition home or self-care (01) | DRG 432 ==
LOC: ER 09:55 → SUR 3N 19:48
PROVIDERS: ADMIT Internal Medicine; ATTEND Family Medicine
PROC: BW241ZZ Computerized Tomography (CT Scan) of Chest and Abdomen using Low Osmolar Contrast (ICD-10-PCS; principal; 2024-02-28)
DX: K70.31 Alcoholic cirrhosis of liver with ascites (principal); I21.A1 Myocardial infarction type 2; K76.6 Portal hypertension; S22.41XA Multiple fractures of ribs, right side, initial encounter for closed fracture; K42.9 Umbilical hernia without obstruction or gangrene; I51.7 Cardiomegaly; Z88.6 Allergy status to analgesic agent; W18.30XA Fall on same level, unspecified, initial encounter; Y93.89 Activity, other specified; Y92.89 Other specified places as the place of occurrence of the external cause; Y99.8 Other external cause status
CPT/HCPCS: 36415; 71045; 74177; 80048; 80053; 81001; 82140; 83690; 83735; 84484; 85025; 85610; 85730; 87081; 87088; 99285; G0378; J3490; Q9967

== ENCOUNTER 2025-04-21 19:11 | Emergency (ER) | payer MEDICAID ==
[~2025-04-21] VITALS: Ht 165.1 cm; Wt 75.8 kg
[~2025-04-21 19:11] MED LIST changes: -FURO20TA4 PO; +FURO40TA4 PO; +LACT-373 PO; -LACT10SO3 PO
--- NOTE | 2025-04-21 22:34 | Physician Documentation ---
History of Present Illness ~ Chief Complaint: Eye Pain Stated Complaint: L EYE PAIN Time Seen by MD: 20:40 Primary Medical Doctor: none HPI This is a 54-year-old female with reported history of recent cataract surgery and diagnosis of autoimmune scleritis who presents with left eye pain and redness with photosensitivity worse today. Patient reports pain redness has been present for two weeks and she was seen and placed on eyedrops by her private sector executive weeks ago, patient reports the pain has come and gone over that time though was worse today. Patient reports no other acute symptoms or concerns. Medication Reconciliation Allergies: Coded Allergies: NSAIDS (Non-Steroidal Anti-Inflamma (Verified Allergy, Unknown, 02/28/24) aspirin (Verified Allergy, Unknown, 02/28/24) Uncoded Allergies: NSAID (Allergy, Unknown, 07/04/23) Scheduled Cholecalciferol (Vitamin D3) (Vitamin D3), 1 CAP PO DAILY, (Reported) Folic Acid* (Folic Acid*), 1 TAB PO DAILY, (Reported) Furosemide (Furosemide), 40 MG PO DAILY Lactulose (Lactulose), 30 ML PO BID, (Reported) Multivitamin (One-A-Day Essential), 1 TAB PO DAILY, (Reported) Potassium Chloride (Potassium Chloride), 1 TAB PO DAILY, (Reported) Pyridoxine Hcl (Vitamin B-6), 1 TAB PO DAILY, (Reported) Sertraline HCl (Sertraline HCl), 1 TAB PO DAILY, (Reported) Spironolactone (Spironolactone), 1 TAB PO BID, (Reported) Thiamine Hcl (Vitamine B-1), 100 MG PO DAILY, (Reported) Trazodone HCl (Trazodone HCl), 1 TAB PO HS, (Reported) Scheduled PRN Acetaminophen (Tylenol), 1-2 TAB PO QID PRN PRN for pain or fever, (Reported) Past Medical History Past Medical History: *GI/HEPATOBILIARY*, Cirrohsis, Liver Failure, Liver Disease Past Surgical History: noncontributory Drug Use: none Lives In: Home Review of Systems ROS As stated above in the HPI, otherwise all systems are reviewed and negative. Physical Exam Vital Signs: Temperature: 97.5, Source: Temporal, Heart Rate: 86, Respiratory Rate: 16, BP: 138/75, Pulse Oximetry: 97, Weight: 75.750 Oxygen Flow Rate: 0 Physical Exam VITALS: Reviewed and as above. GENERAL: Alert, nontoxic appearing, no apparent distress. HEENT: Conjunctiva injected without ciliary flush, PERRLA, EOMI without pain, no periorbital erythema or edema, no periorbital tenderness. Intra-ocular pressures: 10mmHg OD, 7mmHG OS RESPIRATORY: No increased work of breathing, no respiratory distress, speaking in full clear sentences Progress Results/Orders Results/Orders Vital Signs 04/21/25 04/21/25 19:17 23:03 Temp 97.5 98.6 Pulse 86 84 Resp 16 18 B/P (MAP) 138/75 136/74 Pulse Ox 97 99 O2 Flow Rate 0 Medical Decision Making Findings This 54-year-old female presented with left eye pain and redness, patient reported the pain and redness has been present for two weeks and has been seen by private sector executive, patient concerned that pain had been decreasing but returned today. Physical exam demonstrated conjunctival injection otherwise normal physical exam with intra-ocular pressure of the affected eye at 7 mm Hg which was reassuring against glaucoma, as patient is already on ophthalmic eyedrops for treatment of autoimmune scleritis this is likely cause of patient's pain, patient has been instructed to continue to use medications as prescribed by private sector executive and to follow up 1st thing in the morning with private sector executive. Visual acuity normal. Patient is otherwise well-appearing with remainder of physical exam benign, vital signs stable and appropriate for outpatient follow up. Patient provided follow up instructions and return to care precautions which she verbalized understanding of. Eye Diff. Dx: Considerations: Include: [place], Conjuctivits-allergic, Conjuctivitis-bacterial, Conjuctivits-chlamydial, Conjuctivitis-viral, Corneal abrasion, Corneal laceration, Corneal ulceration, Foreign body-conjuctiva, Foreign body-corneal, Foreign body-intraocular, Foreign body-lid, Glaucoma, Globe rupture, Hordeolum, Iritis, Orbital cellulitis, Periobital cellulitis, Subconjunctival hem, Ultraviolet keratitis, Uveitis Departure Disposition: HOME / SELF CARE / HOMELESS Impression: Primary Impression: Left eye pain Condition: Improved Discharge Instructions: Scleritis and Episcleritis Additional Instructions: Use the eyedrops as prescribed by your private sector executive (eye doctor). Please follow up with her private sector executive 1st thing tomorrow. Please follow up with your primary care provider in the next few days. Please return to the emergency department for any new or worsening concerning symptoms. Referrals: NO PRIMARY CARE PROVIDER (PCP) Education Educated: Patient Educated regarding: diagnosis, treatment, prognosis, need for follow up Signature Scribe Signature: No scribe Attestation: The note accurately reflects work and decisions made by me.SIOMARA Javier 04/22/25 01:35 DUNCAN MANCERA Apr 21, 2025 22:34
[2025-04-21 23:03] VITALS: BP 136/74; PULSE 84; RESP 18; TEMP 98.6; O2SAT 99
== END 2025-04-21 23:04 | disposition home or self-care (01) ==
LOC: ER 19:12
DX: H57.12 Ocular pain, left eye (principal); Z88.6 Allergy status to analgesic agent; Z88.8 Allergy status to other drugs, medicaments and biological substances; Z79.899 Other long term (current) drug therapy
CPT/HCPCS: 99282